=== PATIENT | female | born 1955 | race Two or more races ===

== ENCOUNTER 2019-06-01 15:39 | Outpatient (CLI) | payer BC ==
--- NOTE | 2019-06-02 09:23 | XRAY Report ---
Reason: ACUTE PAIN LEFT KNEE Procedure Date: 06/01/2019 Accession Number: [id number] / [id number] Procedure: XR - Knee 3 View LT CPT Code: Final Report FULL RESULT: EXAM: LEFT KNEE RADIOGRAPHY EXAM DATE: 06/01/2019 04:00 PM. CLINICAL HISTORY: Acute pain left knee. Left knee pain x2 weeks. No known injury. COMPARISON: None. TECHNIQUE: 3 views. FINDINGS: Bones: Normal. No fractures or bone lesions. Joints: Normal alignment. No subluxation. There is mild joint space narrowing and minimal osteophyte formation at the medial compartment of the knee. A small joint effusion is present. Soft Tissues: Normal. No soft tissue swelling. IMPRESSION: 1. No fracture or other acute osseous abnormality of the knee. 2. Small knee joint effusion. 3. 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 RADIA
== END 2019-06-01 15:40 | disposition home or self-care (01) ==
LOC: DI 15:39
PROVIDERS: ATTEND Family Medicine
DX: M17.12 Unilateral primary osteoarthritis, left knee (principal); M25.462 Effusion, left knee

== ENCOUNTER 2020-11-20 19:44 | Emergency (ER) | payer BC, OTHER ==
[2020-11-20 20:38] LABS: BASOPHILS # (AUTO) 0.1 10^3/uL (0.0-0.1); BASOPHILS % (AUTO) 0.6 %; EOSINOPHILS # (AUTO) 0.2 10^3/uL (0.0-0.7); EOSINOPHILS % (AUTO) 1.9 %; HCT - HEMATOCRIT 42.3 % (37.0-47.0); HGB - HEMOGLOBIN 13.4 g/dL (12.0-16.0); LYMPHOCYTES % (AUTO) 25.2 %; MEAN CORPUSCULAR HGB CONC 31.7 g/dL (32.0-36.0); MEAN CORPUSCULAR VOLUME 94.8 fL (81.0-99.0); MONOCYTES # (AUTO) 0.5 10^3/uL (0.0-1.0); NEUTROPHILS # (AUTO) 5.3 10^3/uL (1.5-6.6); NEUTROPHILS % (AUTO) 66.2 %; PLT - PLATELET COUNT 287 10^3/uL (130-450); RED BLOOD COUNT 4.46 10^6/uL (4.20-5.40); RED CELL DISTRIBUTION WIDTH 13.9 % (12.0-15.0)
[2020-11-20 20:54] LABS: ALBUMIN/GLOBULIN RATIO 1.3 (1.0-2.2); BILIRUBIN,TOTAL 0.8 mg/dL (0.2-1.0); CREATININE 0.9 mg/dL (0.4-1.0); POTASSIUM 3.5 mmol/L (3.5-5.0); TOTAL PROTEIN 7.1 g/dL (6.7-8.2)
--- NOTE | 2020-11-20 21:03 | ED Physician Documentation ---
History of Present Illness - Stated complaint Stated Complaint: DIZZY/NAUSEA - Chief complaint Chief Complaint: Neuro - History obtained from History obtained from: Patient - Additonal information Additional information: 65yF with pmh dm, htn, p/w dizziness and nausea acute onset this evening at the end of dinner. patient normally does not drink alcohol and had a small glass of wine along with a large meal. she had been feeling normal but then toward the end of the meal felt nauseous and dizzy, went to the bathroom and had a bowel movement. symptoms resolved after about 20 minutes and upon arrival to ED she was again asymptomatic. denies cp, soa, fever, back pain abd pain diaphoresis. Review of Systems Ten Systems: 10 systems reviewed and negative Constitutional: denies: Fever, Chills Cardiac: denies: Chest pain / pressure Respiratory: denies: Dyspnea, Cough GI: reports: Nausea. denies: Abdominal Pain, Vomiting, Constipation, Diarrhea : denies: Dysuria Neurologic: reports: Other (dizziness). 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 - Present Medications Home Medications: Ambulatory Orders Medication Instructions Recorded Confirmed Aspirin 81 mg PO DAILY 12/01/14 11/20/20 Atorvastatin Calcium 40 mg PO DAILY 11/20/20 11/20/20 Carvedilol [Coreg] 6.25 mg PO DAILY 11/20/20 11/20/20 Cyanocobalamin (Vitamin B-12) 500 mcg PO DAILY 11/20/20 11/20/20 [Vitamin B-12] Irbesartan [Avapro] 11/20/20 Meloxicam [Mobic] 15 mg PO DAILY 11/20/20 11/20/20 Babcock-3 Acid Ethyl Esters [Lovaza] 1 cap PO DAILY 11/20/20 11/20/20 Pantoprazole Sodium 20 mg PO DAILY 11/20/20 11/20/20 metFORMIN [Glucophage] 500 mg PO DAILY 11/20/20 11/20/20 - Allergies Allergies/Adverse Reactions: Allergies Allergy/AdvReac Type Severity Reaction Status Date / Time omeprazole Allergy Rash Verified 11/20/20 19:57 Sulfa (Sulfonamide Allergy Rash Verified 11/20/20 19:57 Antibiotics) - Social History Does the pt smoke?: No Smoking Status: Never smoker Does the pt drink ETOH?: No Does the pt have substance abuse?: No - Immunizations Immunizations are current?: Yes PD ED PE NORMAL - Vitals Vital signs reviewed: Yes - General General: Alert and oriented X 3, No acute distress, Well developed/nourished - HEENT HEENT: Atraumatic, PERRL, EOMI, Moist mucous membranes - Neck Neck: Supple, no meningeal sign - Cardiac Cardiac: RRR - Respiratory Respiratory: No respiratory distress, Clear bilaterally - Abdomen Abdomen: Non tender, Non distended - Back Back: No CVA TTP - Derm Derm: Normal color, Warm and dry - Extremities Extremities: No deformity - Neuro Neuro: Alert and oriented X 3, 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, No motor deficit, No sensory deficit, Normal speech, Other (normal cerebellar testing, strength) - Psych Psych: Normal mood, Normal affect Results - Vitals Vitals: Vital Signs - 24 hr 11/20/20 11/20/20 11/20/20 19:51 20:33 21:28 Temperature 36.2 C L Heart Rate 72 87 68 Respiratory 16 12 Rate Blood Pressure 170/85 H 123/77 128/86 H O2 Saturation 99 100 98 11/20/20 22:30 Temperature Heart Rate 62 Respiratory 16 Rate Blood Pressure 129/92 H O2 Saturation 99 Oxygen O2 Source Room air - EKG (time done) 2025 Rate: Rate (enter#) (60) Rhythm: NSR [place]: LAD Intervals: Normal RI QRS: Normal Ischemia: Normal ST segments - Labs Labs: Laboratory Tests 11/20/20 11/20/20 11/20/20 20:34 20:34 20:34 WBC 8.0 RBC 4.46 Hgb 13.4 Hct 42.3 MCV 94.8 MCH 30.0 MCHC 31.7 L RDW 13.9 Plt Count 287 MPV 10.0 Neut # (Auto) 5.3 Lymph # (Auto) 2.0 Sutter # (Auto) 0.5 Eos # (Auto) 0.2 Baso # (Auto) 0.1 Absolute Nucleated RBC 0.00 Nucleated RBC % 0.0 Sodium 136 Potassium 3.5 Chloride 99 L Carbon Dioxide 27 Anion Gap 10.0 BUN 22 H Creatinine 0.9 Estimated GFR (MDRD) 63 L Glucose 153 H Calcium 9.0 Total Bilirubin 0.8 AST 23 ALT 27 Alkaline Phosphatase 63 Troponin I High Sens 3.4 Total Protein 7.1 Albumin 4.0 Globulin 3.1 Albumin/Globulin Ratio 1.3 Lipase 42 PD MEDICAL DECISION MAKING - ED course ED course: 65yF presented with brief remitting nausea and dizziness without other features. Workup in ED noncontributory. return precautions given. patient will f/u with her pmd this week. Departure - Departure Disposition: 01 Home, Self Care Clinical Impression: Dizziness, Nausea Condition: Good Instructions: ED Dizziness [facility] Comments: You are seen in the emergency department for dizziness, nausea that lasted about 20 minutes at dinnertime. Your physical exam and work-up in the emergency room did not show any emergent cause for your symptoms but you should follow-up with your primary doctor this week. Please return to the emergency department if you have any new or worsening symptoms or other concerns. Drink 8 to 10 glasses of water daily and eat frequent small snacks. Discharge Date/Time: 11/20/20 22:35
--- NOTE | 2020-11-20 21:46 | XRAY Report ---
PROCEDURE: Chest 1 View X-Ray INDICATIONS: Chest Pain TECHNIQUE: One view of the chest was acquired. COMPARISON: None. FINDINGS: Surgical changes and devices: None. Lungs and pleura: No pleural effusions or pneumothorax. Scattered subsegmental scarring/atelectasi s. No acute consolidation. Mediastinum: Mediastinal contours appear normal. Heart size is normal. Bones and chest wall: No suspicious bony lesions. Overlying soft tissues appear unremarkable. IMPRESSION: No acute disease. Reviewed by: Ebenezer Aguirre MD on 11/20/2020 9:44 PM PDT Approved by: Ebenezer Aguirre MD on 11/20/2020 9:44 PM PDT Station ID: [id number]
[2020-11-20 22:33] VITALS: BP 129/92
== END 2020-11-20 22:35 | disposition home or self-care (01) ==
LOC: ED 19:44
DX: R42 Dizziness and giddiness (principal); R11.0 Nausea
CPT/HCPCS: 36415; 80053; 83690; 84484; 85025; 93005; 99283; 99284

== ENCOUNTER 2022-11-05 07:58 | Outpatient (CLI) | payer MEDICARE ==
--- NOTE | 2022-11-05 13:51 | MRI Report ---
PROCEDURE: LUMBAR SPINE WO INDICATIONS: OTHER SPONDYLOSIS WITH RADICULOPATHY, LUMBOSACRAL TECHNIQUE: Noncontrast sagittal T1 spin echo and T2 fast echo, sagittal STIR, axial T1 and T2 fast spin echo thr ough the lumbar spine. In cases with scoliosis, additional coronal T2 fast spin echo may be performe d. COMPARISON: None. FINDINGS: Image quality: Excellent. Alignment and Curvature: No plain films are available for comparison. Thus, for numbering purposes, 5 lumbar type vertebral bodies will be presumed for the current report. This should be confirmed with plain film correlation prior to any lumbar spinal intervention. 3 mm of retrolisthesis of L1 on L2. 2 mm of retrolisthesis of L2 on L3 and L3 on L4. 3 mm of anterolisthesis of L4 on L5. Bone Marrow: Marrow is of normal overall signal. No acute vertebral body compression fractures. Mi ld reactive signal throughout the endplates of the lumbar and lower thoracic spine. Spinal Cord: Conus medullaris terminates at the L1-L2 disc space level. Visualized cord demonstrate s normal signal and size. Paraspinous Soft Tissues: No paravertebral masses. T12-L1: Mild disc height loss and desiccation. No significant canal nor foraminal stenosis. L1-L2: Mild disc height loss and desiccation. Mild diffuse disc bulge. Mild facet and ligament fla vum hypertrophy. Mild upper lipomatosis. Mild canal stenosis. Mild bilateral foraminal stenosis. L2-L3: Mild disc desiccation and diffuse disc bulge. Mild facet and ligament flavum hypertrophy. M ild canal stenosis. Mild bilateral foraminal stenosis. L3-L4: Mild disc height loss and desiccation. Mild diffuse disc bulge. Mild facet and ligament flav um hypertrophy. Mild canal stenosis. Moderate left and mild right foraminal stenosis. L4-L5: Mild disc height loss and desiccation. Mild diffuse disc bulge. Mild facet and ligament flav um hypertrophy. Mild canal stenosis. Mild bilateral foraminal stenosis. L5-S1: Mild disc height loss and desiccation. Mild diffuse disc bulge. Moderate bilateral facet hyp ertrophy. Mild canal stenosis. Moderate subarticular foraminal stenosis bilaterally. IMPRESSION: 1. Multilevel degenerative disc and facet disease, in addition to epidural lipomatosis and ligamentum flavum hypertrophy. 2. Mild multilevel canal stenoses. 3. Multilevel foraminal stenoses, worst at L3-L4 and L5-S1 where there are moderate foraminal stenose s. Reviewed by: Ann Marie Hdz MD on 11/05/2022 1:50 PM PDT Approved by: Ann Marie Hdz MD on 11/05/2022 1:50 PM PDT Station ID: [id number]
== END 2022-11-05 07:59 | disposition home or self-care (01) ==
LOC: DI 07:58
PROVIDERS: ATTEND Physician Assistant
DX: M47.27 Other spondylosis with radiculopathy, lumbosacral region (principal); M43.16 Spondylolisthesis, lumbar region; M47.816 Spondylosis without myelopathy or radiculopathy, lumbar region; M41.9 Scoliosis, unspecified; M47.815 Spondylosis without myelopathy or radiculopathy, thoracolumbar region; M51.35 Other intervertebral disc degeneration, thoracolumbar region; M48.05 Spinal stenosis, thoracolumbar region; M47.817 Spondylosis without myelopathy or radiculopathy, lumbosacral region; M51.36 Other intervertebral disc degeneration, lumbar region; M48.061 Spinal stenosis, lumbar region without neurogenic claudication; M51.37 Other intervertebral disc degeneration, lumbosacral region; M48.07 Spinal stenosis, lumbosacral region